=== PATIENT | male | born 1950 | race Caucasian/White ===

== ENCOUNTER 2019-07-04 15:07 | Outpatient (CLI) | payer MEDICARE, SELFPAY ==
--- NOTE | 2019-07-04 | ECG_ITS ---
Measurements Intervals [place] Rate: 87 P: 70 SC: 162 QRS: 47 QRSD: 92 T: 70 QT: 370 QTc: 447 Interpretive Statements SINUS RHYTHM NORMAL ECG Electronically Signed On 07-04-2019 16:21:08 CDT by Baldev Quiroga D.O.
== END 2019-07-04 15:08 | disposition home or self-care (01) ==
PROVIDERS: PCP Family Medicine; Visit Provider Nurse Practitioner Family
DX: R94.31 Abnormal electrocardiogram [ECG] [EKG] (principal)
CPT/HCPCS: 93005

== ENCOUNTER 2019-11-13 14:47 | Outpatient (CLI) | payer MEDICARE, SELFPAY ==
--- NOTE | 2019-11-13 | ECG_ITS ---
Measurements Intervals [place] Rate: 90 P: 68 [place]: 163 QRS: 70 QRSD: 90 T: 75 QT: 366 QTc: 448 Interpretive Statements SINUS RHYTHM MINIMAL Q WAVES- INF/LAT LEADS BORDERLINE ECG Electronically Signed On 11-13-2019 15:32:45 CDT by Baldev Quiroga D.O.
== END 2019-11-13 14:48 | disposition home or self-care (01) ==
LOC: ANHCARD 14:51
PROVIDERS: PCP Family Medicine; Visit Provider Nurse Practitioner Family
DX: R94.31 Abnormal electrocardiogram [ECG] [EKG] (principal)
CPT/HCPCS: 93005

== ENCOUNTER 2020-03-10 14:46 | Outpatient (CLI) | payer MEDICARE, SELFPAY ==
--- NOTE | 2020-03-10 | ECG_ITS ---
Measurements Intervals [place] Rate: 78 P: 50 [place]: 169 QRS: 55 QRSD: 86 T: 66 QT: 393 QTc: 449 Interpretive Statements SINUS RHYTHM BASELINE ARTIFACT- V1, V6 NORMAL ECG Electronically Signed On 03-10-2020 15:38:02 [employer] by Baldev Quiroga D.O.
== END 2020-03-10 14:47 | disposition home or self-care (01) ==
LOC: ANHLAB 14:50
PROVIDERS: PCP Family Medicine; Visit Provider Nurse Practitioner Family
DX: R94.31 Abnormal electrocardiogram [ECG] [EKG] (principal)
CPT/HCPCS: 93005

== ENCOUNTER 2020-07-14 14:08 | Outpatient (CLI) | payer MEDICARE, SELFPAY ==
--- NOTE | 2020-07-14 | ECG_ITS ---
Measurements Intervals [place] Rate: 85 P: 9 DC: 153 QRS: 55 QRSD: 95 T: 80 QT: 381 QTc: 455 Interpretive Statements SINUS RHYTHM FREQUENT ATRIAL PREMATURE COMPLEXES MINIMAL Q WAVES- INFERIOR LEADS BASELINE WANDER- I, II, AVR, V1-V3 ABNORMAL ECG Electronically Signed On 07-14-2020 15:06:44 CDT by Baldev Quiroga D.O.
== END 2020-07-14 14:09 | disposition home or self-care (01) ==
LOC: ANHCARD 14:11
PROVIDERS: PCP Family Medicine; Visit Provider Nurse Practitioner Family
DX: R94.31 Abnormal electrocardiogram [ECG] [EKG] (principal)
CPT/HCPCS: 93005

== ENCOUNTER 2020-11-03 14:13 | Outpatient (CLI) | payer MEDICARE, SELFPAY ==
--- NOTE | 2020-11-03 14:40 | ECG_ITS ---
Measurements Intervals [place] Rate: 93 P: 9 [place]: 155 QRS: 41 QRSD: 97 T: 58 QT: 355 QTc: 442 Interpretive Statements SINUS RHYTHM ATRIAL COUPLET AND ATRIAL PREMATURE COMPLEX BORDERLINE T WAVE ABNORMALITY- HIGH LATERAL LEADS BASELINE ARTIFACT- II, III, AVL, AVF, V1, V5-V6 BORDERLINE ECG Electronically Signed On 11-03-2020 15:16:30 CDT by Baldev Quiroga D.O.
== END 2020-11-03 14:14 | disposition home or self-care (01) ==
LOC: ANHCARD 14:22
PROVIDERS: PCP Family Medicine; Visit Provider Nurse Practitioner Family
DX: R94.31 Abnormal electrocardiogram [ECG] [EKG] (principal)
CPT/HCPCS: 93005

== ENCOUNTER 2022-04-14 13:44 | Emergency (ER) | payer MEDICARE, SELFPAY ==
[2022-04-14 13:57] VITALS: BP 128/105; PULSE 93; RESP 16; TEMP 37.2; O2SAT 97
[2022-04-14 14:07] VITALS: BP 128/105; PULSE 93; RESP 16; TEMP 37.2; O2SAT 97
--- NOTE | 2022-04-14 14:22 | ED.GENADULT ---
HPI - General Adult General Chief complaint: Extremity Injury, Upper Stated complaint: right elbow pain Time Seen by Provider: 04/14/22 14:00 Source: patient, RN notes reviewed and old records reviewed Mode of arrival: ambulatory Limitations: no limitations History of Present Illness HPI narrative: 72 year old male who presents to [facility] care with complaints of red swollen left elbow for the past 3 days. Patient states that he had an abrased skin area on his elbow on Sunday and now area is red swollen and warm with some drainage noted he reports, total area of redness including elbow is 15cm x 13cm . Patient reports that he has used prid salve on his elbow. Patient refuses x-ray. of his elbow. MD complaint: left elbow swelling and redness. Onset (ago): day(s) (3) Treatments prior to arrival: other (prid salve) Related Data Home Medications Medication Instructions Recorded Confirmed amitriptyline 25 mg tablet 25 mg PO DAILY 04/14/22 04/14/22 morphine 30 mg tablet,extended 30 mg PO DIRECTED 04/14/22 04/14/22 release oxycodone-acetaminophen 10 mg-325 1 tablet PO DIRECTED 04/14/22 04/14/22 mg tablet prednisone 10 mg tablet 10 mg PO DAILY 04/14/22 04/14/22 Allergies Allergy/AdvReac Type Severity Reaction Status Date / Time gentamicin Allergy Hives Verified 04/14/22 14:07 ivp dye Allergy Anaphylactic Uncoded 04/14/22 14:06 Shock Review of Systems Review of Systems: CONSTITUTIONAL: Denies fever, chills, or sweats. EYES: Denies visual changes, redness, or discharge. ENT: Denies rhinorrhea, congestion, sore throat, or otalgia. CARDIOVASCULAR: Denies chest pain, palpitations, or edema. RESPIRATORY: Denies cough or dyspnea. GASTROINTESTINAL: Denies abdominal pain, nausea, vomiting, or diarrhea. GENITOURINARY: Denies dysuria or hematuria. SKIN: Denies rash or itching. Positive for swelling and erythema and warm of elbow and surrounding area. MUSCULOSKELETAL: Denies back pain,report some elbow discomfort along olecranon area, or myalgia. NEUROLOGIC: Denies headache, numbness, or weakness. PSYCHIATRIC: Denies anxiety or depression. All systems reviewed & are unremarkable except as noted in HPI and below PMFSH Comments At time of signature, agree with nursing past medical, surgical, social and family history. There is no relevant family history pertinent to the presenting complaint Exam Narrative: GENERAL: Well-appearing, well-nourished, and in no acute distress. HEAD: Normocephalic, atraumatic. EYES: PERRLA and EOMI. ENT: Nares clear, no rhinorrhea or epistaxis. Mucous membranes moist.TM's normal with good light reflex, throat pink with no lesions or exudates NECK: Supple. no lymphadenopathy CHEST: Clear to auscultation. No respiratory distress. HEART: Regular rate and rhythm. No murmur heard. Normal peripheral pulses. ABDOMEN: Soft, nontender, nondistended, normal active bowel sounds. EXTREMITIES: Normal range of motion. Noted edema. to elbow at olecranon region with surrounding redness and warmth total 15cm X 13cm area of redness SKIN: Warm, dry, no rash. NEURO: No focal deficits. Alert and oriented x3. Course Course Emergency Course: Patient is aware of diagnosis, understands and agrees to treatment plan.? Anticipatory guidance given.? Patient agrees to follow-up as directed and is aware of reasons to seek care at the emergency department. Portions of this record may have been created with voice recognition software Level of Care: Express Care Visit Vital Signs Vital signs: Vital Signs Temperature 37.2 C 04/14/22 13:57 Pulse Rate 93 04/14/22 13:57 Respiratory Rate 16 04/14/22 13:57 Blood Pressure 128/105 H 04/14/22 13:57 Pulse Oximetry 97 04/14/22 13:57 Oxygen Delivery Room Air 04/14/22 13:57 Temperature 37.2 C 04/14/22 14:07 Pulse Rate 93 04/14/22 14:07 Respiratory Rate 16 04/14/22 14:07 Blood Pressure 128/105 H 04/14/22 14:07 Pulse Oximetry 97 04/14/22 14:07
== END 2022-04-14 14:40 | disposition home or self-care (01) ==
PROVIDERS: Emergency Provider Registered Nurse; PCP Family Medicine
DX: L02.413 Cutaneous abscess of right upper limb (principal); M06.9 Rheumatoid arthritis, unspecified
CPT/HCPCS: 99213; G0463